=== PATIENT | male | born 1975 | race African-American/Black ===

== ENCOUNTER 2018-02-06 20:46 | Emergency (ER) | payer OTHER | END 2018-02-06 21:44 | disposition home or self-care (01) | LOC: ER 20:46 | DX: M79.89 Other specified soft tissue disorders (principal); M79.675 Pain in left toe(s) | CPT/HCPCS: 73620; 99284 ==

== ENCOUNTER → 2018-04-27 | Outpatient (CLI) | payer OTHER ==
[2018-02-06 21:05] VITALS: BP 134/76
[~2018-04-27] MED LIST: CEPH-264 PO; IBUP-1060 PO; ONDA4TAB10 SL
== END | disposition home or self-care (01) ==
LOC: SPEC 16:35
PROVIDERS: ATTEND Podiatrist
DX: Z11.2 Encounter for screening for other bacterial diseases (principal); B96.20 Unspecified Escherichia coli [E. coli] as the cause of diseases classified elsewhere; Z87.891 Personal history of nicotine dependence
CPT/HCPCS: 87071; 87075; 87186

== ENCOUNTER 2019-03-22 01:48 | Emergency (ER) | payer OTHER ==
[~2019-03-22] VITALS: Ht 175.3 cm; Wt 60.8 kg
[2019-03-22 01:58] VITALS: BP 124/63
[2019-03-22] MEDS ORDERED: IBUPROFEN 400 MG TABLET. PO ONE ×2 (02:15→02:25)
[2019-03-22] MEDS ORDERED: NAPR-683 PO (02:21)
[2019-03-22] MEDS ORDERED: HYDR-3164 PO (02:21)
--- NOTE | 2019-03-22 02:21 | PHYS DOC ---
Past Medical History Past Medical History: No Pertinent History Past Surgical History: Other Additional Past Surgical Histo: PUNCTURED L LUNG, LEFT TOES Alcohol Use: None Drug Use: None Adult General Chief Complaint Chief Complaint: TESTICULAR PAIN OR INJURY HPI HPI Patient is a 43 year old male who presents with complaining of testicular pain and bulging. Patient state he has had left testicular enlargement for the last 2 weeks and pain that getting worse gradually. Patient rated his pain 10 over 10 and denies penile discharge, urinary symptom, nausea and vomiting, abdominal pain, injury, recent sexual activity. Review of Systems Review of Systems Constitutional: Denies fever or chills [] Eyes: Denies change in visual acuity, redness, or eye pain [] HENT: Denies nasal congestion or sore throat [] Respiratory: Denies cough or shortness of breath [] Cardiovascular: No additional information not addressed in HPI [] GI: Denies abdominal pain, nausea, vomiting, bloody stools or diarrhea [] : Denies dysuria or hematuria [] Musculoskeletal: Denies back pain or joint pain [] Integument: Denies rash or skin lesions [] Neurologic: Denies headache, focal weakness or sensory changes [] Endocrine: Denies polyuria or polydipsia [] All other systems were reviewed and found to be within normal limits, except as documented in this note. Current Medications Current Medications Current Medications Medications (Trade) Dose Ordered Sig/[place] Start Time Stop Time Status Last Admin Dose Admin Ibuprofen (Motrin) 400 mg STK-MED ONCE 03/22/19 02:25 03/22/19 02:36 DC Allergies Allergies Allergies Coded Allergies Type Severity Reaction Last Updated Verified No Known Drug Allergies 06/08/16 No Physical Exam Physical Exam Constitutional: Well developed, well nourished, mild distress, non-toxic appearance. [] HENT: Normocephalic, atraumatic Eyes: PERRLA, EOMI, conjunctiva normal, no discharge. [] Neck: Normal range of motion, no tenderness, supple, no stridor. [] Cardiovascular:Heart rate regular rhythm, no murmur [] Lungs & Thorax: Bilateral breath sounds clear to auscultation [] Abdomen: Bowel sounds normal, soft, no tenderness, no masses, no pulsatile masses. Genital exam in present of spring clipper showed normal penis and testicles, large mass about 7 x 5 cm in distal part of left testicle without sign of abscess or cyst with mild tenderness, no sign of torsion. Skin: Warm, dry, no erythema, no rash. [] Back: No tenderness, no CVA tenderness. [] Extremities: No tenderness, no cyanosis, no clubbing, ROM intact, no edema. [] Neurologic: Alert and oriented X 3, normal motor function, normal sensory function, no focal deficits noted. [] Psychologic: Affect anxious, judgement normal, mood normal. [] Current Patient Data Vital Signs Vital Signs Date Time Temp Pulse Resp B/P (MAP) Pulse Ox O2 Delivery O2 Flow Rate FiO2 03/22/19 01:58 99.4 105 16 124/63 (83) 98 Room Air 99.4 EKG EKG [] Radiology/Procedures Radiology/Procedures [] Course & Med Decision Making Course & Med Decision Making Evaluation of patient in ER showed 43-year-old male patient with complaining of left testicular pain and mass for 2 weeks. She had a large distal testicular mass. Patient was advised to follow-up with on-call urology in the morning. Prescription for [place] and ibuprofen was given. Dragon Disclaimer Dragon Disclaimer This electronic medical record was generated, in whole or in part, using a voice recognition dictation system. Departure Departure Impression: Primary Impression: Testicular mass Disposition: HOME, SELF-CARE (at 0218) Condition: STABLE Referrals: NO PCP (PCP) ATUL ALVAREZ MD Patient Instructions: Testicular Masses Additional Instructions: Follow-up with Dr. Alvarez office at 8 AM today Return to ER as needed Scripts Hydrocodone/Apap 5-325 (NORCO 5-325 TABLET) 1 Each Tablet 1 TAB PO PRN Q6HRS PRN for PAIN, #10 TAB 0 Refills Prov: SHAYNA QUINONES MD 03/22/19 Naproxen (NAPROSYN) 500 Mg Tablet 1 TAB PO BID for pain, #20 TAB Prov: SHAYNA QUINONES MD 03/22/19 SHAYNA QUINONES MD Mar 22, 2019 02:21
== END 2019-03-22 02:30 | disposition home or self-care (01) ==
LOC: ER 01:48
DX: N50.89 Other specified disorders of the male genital organs (principal); N50.812 Left testicular pain
CPT/HCPCS: 87491; 87591; 99284

== ENCOUNTER → 2020-10-30 | Outpatient (CLI) | payer OTHER ==
[2019-04-13 18:16] VITALS: BP 148/69
[~2020-10-30] MED LIST changes: +CLIN300C9 PO; +HYDR-3164 PO; +MUPI22OI2 TP; +NAPR-683 PO
--- NOTE | 2020-10-30 13:11 | RAD ---
XR FOOT_LEFT 3 VIEWS DATE: 10/30/2020 10:18 AM INDICATION: LT FOOT 4TH- 5TH [place] PAIN, CALLUS / Spl. Instructions: / History: COMPARISON: 02/06/2018. FINDINGS: Bones: There is no evidence of acute fracture or dislocation. Joints: The joint spaces are normal. Miscellaneous: Unchanged tiny metallic densities overlying the second and third phalanges IMPRESSION: No acute osseous abnormality. Electronically signed by: Colin Bañuelos MD (10/30/2020 1:09 PM) [id number]
== END ==
LOC: RAD 10:09
PROVIDERS: ATTEND Preventive Medicine Undersea and Hyperbaric Medicine
DX: M79.672 Pain in left foot (principal); L84 Corns and callosities
CPT/HCPCS: 73630